=== PATIENT | male | born 1960 | race Caucasian/White ===

== ENCOUNTER 2017-12-03 10:34 | Emergency (ER) | payer OTHER ==
[2017-12-03 10:37] VITALS: BP 163/92
[2017-12-03 11:14] LABS: HEMATOCRIT 37.4 % (39.0-53.0); HEMOGLOBIN 11.9 g/dL (13.0-17.5); MEAN CORPUSCULAR HEMOGLOBIN 29 pg (25-35); MEAN CORPUSCULAR HGB CONC 32 g/dL (31-37); MEAN CORPUSCULAR VOLUME 90 fL (79-100); PLATELET COUNT 311 x10^3/uL (140-400); RED BLOOD COUNT 4.16 x10^6/uL (4.30-5.70); RED CELL DISTRIBUTION WIDTH 17.2 % (11.5-14.5); WHITE BLOOD COUNT 6.9 x10^3/uL (4.0-11.0)
[2017-12-03 11:15] LABS: ALBUMIN 3.6 g/dL (3.4-5.0); ALBUMIN/GLOBULIN RATIO 0.9 (1.0-1.7); CALCIUM 8.5 mg/dL (8.5-10.1); CREATININE 0.8 mg/dL (0.7-1.3); GFR 100.4; MAGNESIUM 1.8 mg/dL (1.8-2.4); TOTAL BILIRUBIN 0.6 mg/dL (0.2-1.0); TOTAL PROTEIN 7.6 g/dL (6.4-8.2)
[2017-12-03] MEDS ORDERED: IV NORMAL SALINE 1,000ML 1,000 ML IV ONE (11:30)
[2017-12-03 11:42] LABS: % BASOS 1 % (0-3); % EOS 3 % (0-5); % LYMPHS 29 % (24-48); % MONOS 9 % (0-10); % SEGS 58 % (35-66); PLT ESTIMATE ADEQUATE (ADEQUATE)
--- NOTE | 2017-12-03 12:14 | RAD ---
Examination: CT head and cervical spine without contrast HISTORY: History of dizziness COMPARISON: None available Exposure: One or more of the following individualized dose reduction techniques were utilized for this examination: 1. Automated exposure control 2. Adjustment of the mA and/or kV according to patient size 3. Use of iterative reconstruction technique TECHNIQUE: Axial CT images of the head was performed without contrast. Axial CT images of the cervical spine were performed without contrast. Coronal and sagittal reformats are performed FINDINGS: No abnormal attenuation within the brain parenchyma. No evidence of acute intracranial hemorrhage. No extra-axial fluid collections. No mass effect or midline shift. Ventricular size is appropriate. Basal cisterns are patent. No fractures identified.Lopez-white differentiation is preserved.Globes and orbits are within normal limits. Paranasal sinuses and mastoid air cells are clear. IMPRESSION: No acute intracranial findings. CT CERVICAL SPINE COMPARISON: None Available. Technique: 2.5 mm contiguous axial images were obtained from the skull base through the cervicothoracic junction in both bone and soft tissue algorithm. Additional sagittal and coronal reconstructions were also performed. FINDINGS: Vertebral body height and alignment are maintained. Cervical lordosis is preserved. The lateral masses of C1 are aligned upon C2. No fractures identified. The bony canal is patent throughout. Mild intervertebral disc height loss identified at C2-C3, C3-C4, C4-C5 and C5-C6 vertebral levels. Small anterior osteophyte formation identified at C5, C6 vertebral levels.. The paraspinous soft tissues are unremarkable. Visualized intracranial contents are unremarkable. Lung apices are clear. IMPRESSION: 1. No acute fracture of the cervical spine. 2. Mild degenerative changes cervical spine. Electronically signed by: Prasad Wahl MD (12/03/2017 12:11 PM) [id number]
[2017-12-03] MEDS ORDERED: diazePAM 5 MG TABLET PO ONE (12:45)
--- NOTE | 2017-12-03 12:55 | PHYS DOC ---
Past History Past Medical History: No Pertinent History Past Surgical History: Other Additional Smoking Information: Chews Alcohol Use: None Drug Use: None Adult General Chief Complaint Chief Complaint: DIZZY/LIGHT HEADED HPI HPI Patient is a 57 year old M who presents with dizziness and poor balance over the past 3-4 weeks. He states that prior to the past 2-3 days his symptoms are intermittent however over the past 2-3 days his symptoms been constant. He feels that his balance is worse with change in position. He notes left-sided head pain. He also states that he has abdominal pain which seems to be constant and associated with drinking alcohol. He states that he did "get drunk" last night and has been told many times by doctors that he drinks too much. He denies any other associated symptoms. He denies other exacerbating or alleviating factors. Review of Systems Review of Systems Constitutional: Denies fever or chills [] Eyes: Denies change in visual acuity, redness, or eye pain [] HENT: Denies nasal congestion or sore throat [] Respiratory: Denies cough or shortness of breath [] Cardiovascular: No additional information not addressed in HPI [] GI: Denies nausea, vomiting, bloody stools or diarrhea [] : Denies dysuria or hematuria [] Musculoskeletal: Denies back pain or joint pain [] Integument: Denies rash or skin lesions [] Neurologic: Negative except history of present illness Endocrine: Denies polyuria or polydipsia [] All other systems were reviewed and found to be within normal limits, except as documented in this note. Family History Family History No pertinent family medical history was reported Current Medications Current Medications Current Medications Medications (Trade) Dose Ordered Sig/Demetrio Start Time Stop Time Status Last Admin Dose Admin Diazepam (Valium) 5 mg 1X ONCE 12/03/17 12:45 12/03/17 12:46 DC 12/03/17 12:27 5 MG Sodium Chloride 1,000 ml @ 1,000 mls/hr 1X ONCE 12/03/17 11:30 12/03/17 12:29 DC 12/03/17 11:30 1,000 MLS/HR Allergies Allergies Allergies Coded Allergies Type Severity Reaction Last Updated Verified No Known Drug Allergies 12/03/17 No Physical Exam Physical Exam Constitutional: Well developed, well nourished, no acute distress, non-toxic appearance. [] HENT: Normocephalic, atraumatic, bilateral external ears normal, oropharynx moist, no oral exudates, nose normal. [] Eyes: EOMI, conjunctiva normal, no discharge. [] Nystagmus noted with extreme lateral gaze on both right and left Neck: Normal range of motion, no tenderness, supple, no stridor. [] Cardiovascular:Heart rate regular rhythm, Lungs & Thorax: Bilateral breath sounds clear to auscultation [] Abdomen: Bowel sounds normal, soft, no tenderness, no masses, no pulsatile masses. [] Skin: Warm, dry, no erythema, no rash. [] Back: No tenderness, no CVA tenderness. [] Extremities: No tenderness, no cyanosis, no clubbing, ROM intact, no edema. [] Neurologic: Alert and oriented X 3, normal motor function, normal sensory function, no focal deficits noted. [] Poor balance was noted Psychologic: Affect normal, judgement normal, mood normal. [] Current Patient Data Vital Signs Vital Signs Date Time Temp Pulse Resp B/P (MAP) Pulse Ox O2 Delivery O2 Flow Rate FiO2 12/03/17 10:37 97.9 91 16 100 Room Air Lab Results Laboratory Tests Test 12/03/17 10:45 White Blood Count 6.9 x10^3/uL (4.0-11.0) Red Blood Count 4.16 x10^6/uL (4.30-5.70) L Hemoglobin 11.9 g/dL (13.0-17.5) L Hematocrit 37.4 % (39.0-53.0) L Mean Corpuscular Volume 90 fL (79-100) Mean Corpuscular Hemoglobin 29 pg (25-35) Mean Corpuscular Hemoglobin Concent 32 g/dL (31-37) Red Cell Distribution Width 17.2 % (11.5-14.5) H Platelet Count 311 x10^3/uL (140-400) Segmented Neutrophils % 58 % (35-66) Lymphocytes % 29 % (24-48) Monocytes % 9 % (0-10) Eosinophils % 3 % (0-5) Basophils % 1 % (0-3) Platelet Estimate Adequate (ADEQUATE) Sodium Level 144 mmol/L (136-145) Potassium Level 4.0 mmol/L (3.5-5.1) Chloride Level 106 mmol/L (98-107) Carbon Dioxide Level 26 mmol/L (21-32) Anion Gap 12 (6-14) Blood Urea Nitrogen 8 mg/dL (8-26) Creatinine 0.8 mg/dL (0.7-1.3) Estimated GFR (Cockcroft-Gault) 100.4 BUN/Creatinine Ratio 10 (6-20) Glucose Level 121 mg/dL (70-99) H Calcium Level 8.5 mg/dL (8.5-10.1) Magnesium Level 1.8 mg/dL (1.8-2.4) Total Bilirubin 0.6 mg/dL (0.2-1.0) Aspartate Amino Transferase (AST) 107 U/L (15-37) H Alanine Aminotransferase (ALT) 50 U/L (16-63) Alkaline Phosphatase 160 U/L (46-116) H Total Protein 7.6 g/dL (6.4-8.2) Albumin 3.6 g/dL (3.4-5.0) Albumin/Globulin Ratio 0.9 (1.0-1.7) L Ethyl Alcohol Level 141 mg/dL (0-10) H EKG EKG Normal sinus rhythm Radiology/Procedures Radiology/Procedures CT head and C-spine Impressions: No acute disease noted Course & Med Decision Making Course & Med Decision Making Pertinent Labs and Imaging studies reviewed. (See chart for details) Admission was recommended and declined Dragon Disclaimer Dragon Disclaimer This electronic medical record was generated, in whole or in part, using a voice recognition dictation system. Departure Departure: Impression: Primary Impression: Dizziness Disposition: 01 HOME, SELF-CARE Condition: STABLE Referrals: PCP,NO (PCP) Patient Instructions: Dizziness Additional Instructions: Wilian was seen in the emergency department for dizziness. No emergency medical condition was found on history or physical exam. He did have normal labs and imaging. His symptoms may be related to alcohol use. He is advised to return to the emergency room as soon as possible if he develops any new or worsening symptoms. He was also advised follow-up with his primary care doctor as needed. CHEO CUEVAS MD Dec 03, 2017 12:55
--- NOTE | 2017-12-03 13:45 | EKG ---
[address] [address] Test Date: 2017-12-03 Test Time: 11:03:15 Pat Name: MARLI PIMENTEL Department: Room: Gender: M Sleeve Baster: BARB : 1960 Requested By: CHEO CUEVAS Order Number: [id number] Reading MD: Cholo Oconnell MD Measurements Intervals [place] Rate: 91 P: 47 MT: 152 QRS: -13 QRSD: 88 T: 10 QT: 392 QTc: 484 Interpretive Statements SINUS RHYTHM NON-SPECIFIC ST/T CHANGES PROLONGED QT Electronically Signed On 12-05-2017 12:51:29 NIB ASSEM[employer]ER by Cholo Oconnell MD
== END 2017-12-03 13:09 | disposition home or self-care (01) ==
LOC: ER 10:34
DX: R42 Dizziness and giddiness (principal); R51 Headache; R10.9 Unspecified abdominal pain; F17.220 Nicotine dependence, chewing tobacco, uncomplicated
CPT/HCPCS: 36415; 70450; 72125; 80053; 83735; 85007; 85025; 93005; 96360; 99285; G0480; J7030